=== PATIENT | female | born 1960 | race Caucasian/White ===

== ENCOUNTER → 2016-12-03 | Outpatient (CLI) | payer OTHER ==
[~2016-12-03] MED LIST: ANTIBIOTIC O500 U/GM TP; ATIVAN1 MG; AUGMENTIN 875875 MG PO; HYDROCODONE BIT1 T11 PO; LODINE XL 400M400 MG PO; MEDROL DOSEPAK4 MG PO; MELOXICAM15 MG PO; MOTRIN800 MG PO; PREDNISONE10 MG PO; TRAMADOL50 MG PO; VICODIN ES 7501 TAB PO; ZOFRAN4 MG PO; ZOLOFT100 MG PO
== END | disposition home or self-care (01) ==
LOC: RAD 14:25
DX: M47.892 Other spondylosis, cervical region (principal); M48.02 Spinal stenosis, cervical region

== ENCOUNTER 2017-09-22 15:14 | Emergency (ER) | payer OTHER ==
[~2017-09-22] VITALS: Ht 157.4 cm; Wt 101.2 kg
[2017-09-22] MEDS ORDERED: CHLORZOXAZONE500 M2 PO (15:46)
[2017-09-22] MEDS ORDERED: PREDNISONE10 MG PO (17:16)
[2017-09-22 17:18] VITALS: BP 133/87
== END 2017-09-22 17:25 | disposition home or self-care (01) ==
LOC: ED 15:14
DX: M54.42 Lumbago with sciatica, left side (principal); R03.0 Elevated blood-pressure reading, without diagnosis of hypertension; Z79.899 Other long term (current) drug therapy; Z98.890 Other specified postprocedural states